=== PATIENT | female | born 1995 ===

== ENCOUNTER 2024-07-02 17:16 | Outpatient (REF) | payer BC, SELFPAY ==
[2024-07-02 21:39] LABS: HCT 41.3 % (36.0-46.0); HGB 13.7 g/dL (11.2-15.7); MCH 31.4 pg (27.0-33.0); MCHC 33.2 % (32.0-36.0); MCV 95 fL (80-95); MPV 10.9 fL (8.0-11.0); Platelet Count 241 10^3/uL (130-400); RBC 4.37 10^6/uL (3.93-5.22); RDW 12.1 % (11.7-14.6); RDW-SD 42.4 fL; WBC 8.39 10^3/uL (4.4-10.8)
[2024-07-02 21:59] LABS: ALT 21 U/L (14-59); AST 12 U/L (15-37); Albumin 3.9 g/dL (3.4-5.0); Alkaline Phosphatase 47 U/L (46-116); Anion Gap 9.4 mmol/L (3-11); BUN 12 mg/dL (7-18); Bilirubin, Total 1.2 mg/dL (0.2-1.0); CO2 26.6 mmol/L (21.0-32.0); CREATININE 0.7 mg/dL (0.55-1.02); Calcium 9.3 mg/dL (8.5-10.1); Chloride 105 mmol/L (98-107); Estimated GFR 120.74 (mL/min/1.73m2); Glucose 107 mg/dL (74-106); Potassium 3.9 mmol/L (3.5-5.1); Sodium 141 mmol/L (136-145); TSH (W/Ref FT4) 1.22 uIU/mL (0.36-3.74)
== END 2024-07-02 17:17 | disposition home or self-care (01) ==
LOC: NCHCN 17:16
PROVIDERS: Visit Provider Nurse Practitioner Family
DX: Z00.00 Encounter for general adult medical examination without abnormal findings (principal); R41.840 Attention and concentration deficit
CPT/HCPCS: 80053; 85027; 84443